=== PATIENT | female | born 1985 | race Caucasian/White ===

== ENCOUNTER 2021-05-03 11:42 | Outpatient (CLI) | payer BC | END 2021-05-03 11:43 | disposition home or self-care (01) | LOC: BICRAD 11:42 | PROVIDERS: ATTEND Nurse Practitioner Family | DX: R05.3 Chronic cough (principal) | CPT/HCPCS: 71046 ==

== ENCOUNTER 2021-05-18 14:46 | Outpatient (CLI) | payer BC ==
[~2021-05-18 14:46] MED LIST: Iopamidol-370 76% 500 ML 1 ML ONE
== END 2021-05-18 14:47 | disposition home or self-care (01) ==
LOC: BICCT 14:46
PROVIDERS: ATTEND Nurse Practitioner Family
DX: R07.81 Pleurodynia (principal); R05.3 Chronic cough
CPT/HCPCS: 71260